=== PATIENT | female | born 1940 | race Asian ===

== ENCOUNTER 2016-10-06 00:34 | Emergency (ER) | payer MEDICARE ==
--- NOTE | ~2016-10-06 | ER ---
PATIENT'S NAME: ELROY LEIJA [facility] AGE: 76 Y [address] ROOM: [place] [id number] LOCATION: [facility] ADMIT DATE: 10/06/2016 ER/Outpatient Report DISCHARGE DATE: 10/06/2016 FAMILY PHYSICIAN: Aston Smith MD ATTENDING PHYSICIAN: Zo Whaley HISTORY OF PRESENT ILLNESS: A 76-year-old female who presents today with a chief complaint of sore throat, weakness, vomiting, fever, also with a cough that started today. Vomiting just also started before they called EMS. Subjective fevers. The patient does not live with her daughter who is translating and says that she took a Tylenol, but she does not remember when, it has been more than 4 hours ago. Only complaint right now is a sore throat, but her daughter says that she is not acting normally, she seems really lethargic and fatigued as well. PAST MEDICAL HISTORY: Includes hypertension, hyperlipidemia, hypothyroidism, and GERD. PAST SURGICAL HISTORY: Some sort of back surgery. SOCIAL HISTORY: She does not smoke, drink, or use any drugs. MEDICATIONS: Please see med list. ALLERGIES: NONE. REVIEW OF SYSTEMS: Reviewed by me and negative with the exception of those discussed in the HPI. PHYSICAL EXAMINATION: VITAL SIGNS: The patient is 62.6 kilos, her blood pressure is 139/81, heart rate 104, respiratory rate 20, temperature, tympanic is 104.6, and satting 92% on room air. GENERAL: The patient feels mildly [id number]. She appears lethargic as well. She is able to open her eyes when we talk to her and follow some commands. HEENT: Pupils are equal and reactive to light. She has no nuchal rigidity or tenderness. She has no facial tenderness. Her throat is erythematous, but I do not see any exudates. I do not feel any lymph nodes. HEART: Her heart rate is tachycardic at 110 beats per minute at this time. LUNGS: Her lung sounds sound diminished at the bases, but no wheezing, rales, PATIENT'S NAME: ELROY LEIJA [facility] AGE: 76 Y [address] ROOM: [place] [id number] LOCATION: [facility] ADMIT DATE: 10/06/2016 ER/Outpatient Report DISCHARGE DATE: 10/06/2016 FAMILY PHYSICIAN: Aston Smith MD ATTENDING PHYSICIAN: Zo Whaley or padma. No increased work of breathing. Her sat improved to 97% to 98% when I told her to take a deep breath. ABDOMEN: Soft, nontender, nondistended. No guarding or rebound. She has no right lower quadrant tenderness or left lower quadrant tenderness. No epigastric tenderness. No right upper quadrant tenderness. No suprapubic tenderness. EXTREMITIES: No rash. No pedal edema. EMERGENCY ROOM COURSE: We established an IV, we also started her on some fluids, we gave her Reglan for vomiting, gave her Tylenol suppository for fever, we then checked some labs. Her white count is 10.9, H and H is 11.8/35.2, and platelets are 116. No bandemia. Her lactic acid is 1.5. Her CMS is sodium 137, potassium 4.1, chloride 104, CO2 is 23, anion gap is 14.1, glucose is 104, BUN is 13, creatinine is 1, alk phos is 74, AST is 19, ALT is 19, GFR is 54, and lipase is 242. Procalcitonin mildly elevated at 0.37 and her strep screen is positive. The patient was given a dose of Bicillin LA, is able to tolerate ibuprofen, her fever came down to 100.8, and the patient became much more alert, says she feels much better, wants to go home now. We gave her 2 L of normal saline. She still is slightly tachycardic at 110 beats per minute. We know the source for her fever and treating it as such though. Her urine is negative for any infection and her chest x-ray looks within normal limits to me. To call Dr. Smith regarding the plan. She received antibiotics here; although, she did have a very high fever when she came in and has some persistent tachycardia. I think she can go home. She looks a lot better. Therefore, she is alert and oriented x4 at this time and was able to walk with assistance to the bathroom. Dr. Smith agrees. He will see her in his clinic in about 12 hours for followup. They understand reasons to come back to the ER sooner. IMPRESSION: Strep throat, fever. MD ARIA LORENZ/modl /[id number] d: 10/06/16 0540 t: 10/06/16 1841, OUTPATIENT REPORT
[2016-10-06 01:13] LABS: BILIRUBIN URINE NEGATIVE (NEGATIVE); BLOOD URINE NEGATIVE /UL (NEGATIVE); GLUCOSE URINE NEGATIVE (NEGATIVE); KETONE URINE NEGATIVE (NEGATIVE); LEUKOCYTES URINE NEGATIVE /UL (NEGATIVE); NITRITE URINE NEGATIVE (NEGATIVE); PROTEIN URINE NEGATIVE (NEGATIVE); UROBILINOGEN URINE NORMAL (NORMAL)
[2016-10-06 01:14] LABS: COLOR URINE YELLOW (YELLOW); TURBIDITY URINE CLEAR (CLEAR)
[2016-10-06 01:38] LABS: BASOPHIL % 0.4 %; EOSINOPHIL % 0.2 %; HEMATOCRIT 35.2 % (33.0-46.0); HEMOGLOBIN 11.8 g/dL (10.0-15.0); IMMATURE GRANULOCYTE % 0.4 %; LYMPHOCYTE # 1.9 K/uL (0.8-4.0); MCH 26.8 pg (27.0-34.0); MCHC 33.5 gm/dL (32.0-36.5); MONOCYTE # 1.1 K/uL (0.0-1.0); MONOCYTE % 10.2 %; MPV 9.6 fl (9.4-12.4); NEUTROPHIL # (ANC) 7.9 K/uL (1.8-7.8); NEUTROPHIL % 71.8 %; NRBC % 0 /100WBC (0-0.00); PLATELET COUNT 116 K/uL (150-450); RDW-CV 12.2 % (11.9-14.6); WBC 10.9 K/uL (4.0-11.0)
[2016-10-06 01:56] LABS: ALBUMIN 3.2 gm/dL (3.5-5.0); ANION GAP 14.1 (10.0-19.0); CALCIUM 7.9 mg/dL (8.5-10.5); POTASSIUM 4.1 mMol/L (3.7-5.1); TOTAL BILIRUBIN 0.6 mg/dL (0.0-1.5); TOTAL PROTEIN 7.1 g/dL (6.0-8.4)
== END 2016-10-06 03:31 | disposition disaster alternative care site (69) ==
LOC: GMED 00:34
PROVIDERS: Emergency Medicine
DX: J02.0 Streptococcal pharyngitis (principal); I10 Essential (primary) hypertension; E78.5 Hyperlipidemia, unspecified; E03.9 Hypothyroidism, unspecified; K21.9 Gastro-esophageal reflux disease without esophagitis; Z79.899 Other long term (current) drug therapy; Z98.890 Other specified postprocedural states
CPT/HCPCS: J0561; J2765; J7030

== ENCOUNTER → 2016-10-06 | Outpatient (CLI) | payer MEDICARE ==
[~2016-10-06] MED LIST: BENICAR40 MG PO; DELTASONE20 MG PO; LEVAQUIN500 MG PO; MOTRIN IB200 MG PO; NORVASC10 MG PO; PRILOSEC20 MG PO; PROMETH-CODEIN 65 ML PO; PROVENTIL HFA6.7 GM INH; SYMBICORT 16010.2 GM INH; SYNTHROID50 MCG PO
== END | disposition disaster alternative care site (69) ==
LOC: GAMB 00:10
DX: R11.2 Nausea with vomiting, unspecified (principal); I10 Essential (primary) hypertension; E03.9 Hypothyroidism, unspecified; R50.9 Fever, unspecified
CPT/HCPCS: A0422; A0425; A0427; J2405